=== PATIENT | female | born 1965 | race Caucasian/White ===

== ENCOUNTER 2017-10-03 18:26 | Emergency (ER) | payer BC ==
[~2017-10-03] VITALS: Ht 172.7 cm; Wt 86.4 kg
[2017-10-03] MEDS ORDERED: zolpidem 5mg tablet PO ONE (19:40)
[2017-10-03 20:14] LABS: BASOPHILS # (AUTO) 0.1 X10'3 (0-0.2); BASOPHILS % (AUTO) 0.7 % (0-1); EOSINOPHILS # (AUTO) 0.2 X10'3 (0-0.9); EOSINOPHILS % (AUTO) 1.6 % (0-6); HEMATOCRIT 45.6 % (35.0-45.0); HEMOGLOBIN 15.7 g/dl (12.0-16.0); LYMPHOCYTES # (AUTO) 3.6 X10'3 (1.1-4.8); LYMPHOCYTES % (AUTO) 35.9 % (21-51); MEAN CORPUSCULAR HEMOGLOBIN 30.7 PG (27.0-31.0); MEAN CORPUSCULAR HGB CONC 34.5 % (33.0-36.5); MEAN PLATELET VOLUME 7.8 FL (7.4-10.4); MONOCYTES # (AUTO) 0.6 X10'3 (0-0.9); MONOCYTES % (AUTO) 6.2 % (2-12); NEUTROPHILS # (AUTO) 5.5 X10'3 (1.8-7.7); NEUTROPHILS % (AUTO) 55.6 % (42-75); PLATELET COUNT 239 X10'3 (140-440); RED BLOOD COUNT 5.12 X10'6 (4.20-5.60); RED CELL DISTRIBUTION WIDTH 13.4 % (11.5-14.5); WHITE BLOOD COUNT 9.9 X10'3 (4.5-11.0)
[2017-10-03] MEDS ORDERED: nicotine 21mg patch - 24 hr TD ONE (20:20)
[2017-10-03 20:36] LABS: CLARITY,URINE Clear (Clear); COLOR,URINE Yellow (Yellow); GLUCOSE, URINE Negative (Neg); KETONES,URINE Negative (Neg); LEUKOCYTE ESTERASE ,URINE Trace (Neg); NITRITES, URINE Negative (Neg); OCCULT BLOOD,URINE Negative (Neg); PH,URINE 6.5 (4.8-8.0); PROTEIN,URINE Negative (Neg); UROBILINOGEN,URINE 0.2 E.U/dL (0.2-1.0)
[2017-10-03 20:37] LABS: ALANINE AMINOTRANSFERASE 21 U/L (12-78); ALBUMIN/GLOBULIN RATIO 1.1 (1.1-1.5); ALKALINE PHOSPHATASE 61 IU/L (46-116); ASPARTATE AMINO TRANSFERASE 16 U/L (10-37); BILIRUBIN,TOTAL 0.3 MG/DL (0.1-1.0); BLOOD UREA NITROGEN 17 MG/DL (7-18); BUN/CREATININE RATIO 19.5 (6.6-38.0); CALCIUM 9.6 MG/DL (8.5-10.1); CHLORIDE 105 MMOL/L (99-107); CREATININE 0.87 MG/DL (0.40-0.90); ETHANOL < 0.010 GM/DL (0.0-0.010); GLUCOSE 88 MG/DL (70-104); TOTAL CARBON DIOXIDE 28.4 MMOL/L (24-32); TOTAL PROTEIN 7.5 G/DL (6.4-8.2); eGFR 69 ML/MIN
[2017-10-03 20:37] LABS: URINE HCG NEGATIVE (NEG)
[2017-10-03 20:48] LABS: URINE AMPHETAMINE SCREEN NEGATIVE (Neg); URINE BARBITUATE SCREEN NEGATIVE (Neg); URINE BENZODIAZEPINES SCREEN NEGATIVE (Neg); URINE CANNABINOID SCREEN NEGATIVE (Neg); URINE COCAINE SCREEN NEGATIVE (Neg); URINE METHADONE SCREEN NEGATIVE (Neg); URINE OPIATE SCREEN NEGATIVE (Neg); URINE PHENCYCLIDINE SCREEN NEGATIVE (Neg)
[2017-10-03 20:51] LABS: UA COLLECTION TYPE VOIDED
[2017-10-03 21:01] LABS: SQUAMOUS EPITHELIAL CELL,UR MODERATE /LPF (FEW)
[2017-10-03 21:02] LABS: BACTERIA,URINE 2+ /HPF (Neg); RBC,URINE NONE SEEN /HPF (0-2); WBC,URINE 0-4 /HPF (0-4)
[2017-10-03 21:05] LABS: ANION GAP 9 (8-16); SODIUM 142 MMOL/L (135-145)
[2017-10-04 00:02] VITALS: BP 121/62
[2017-10-04] MEDS ORDERED: nicotine 21mg patch - 24 hr TD SCH (08:00)
[2017-10-04] MEDS ORDERED: NO HOME MEDS (10:59)
[2017-10-05] MEDS ORDERED: BLACK COHOSH PO (11:01)
== END 2017-10-04 00:05 | disposition home or self-care (01) ==
LOC: ER 18:27
DX: R45.851 Suicidal ideations (principal); F17.200 Nicotine dependence, unspecified, uncomplicated; Z60.2 Problems related to living alone; Z88.1 Allergy status to other antibiotic agents
CPT/HCPCS: 36415; 80053; 80305; 80320; 81001; 81025; 84443; 85025; 96372; 99283; 99284; 99285

== ENCOUNTER 2017-10-03 23:00 | Inpatient (IN) | payer BC ==
[~2017-10-03] VITALS: Ht 172.7 cm; Wt 86.4 kg
[2017-10-04 01:57] VITALS: BP 97/64
[2017-10-04] MEDS: acetaminophen 325mg tablet PO PRN ×3 (04:52→21:20)
[2017-10-04 08:00] VITALS: BP 102/69
[2017-10-04] MEDS: nicotine 21mg patch - 24 hr TD SCH (08:28)
[2017-10-04] MEDS ORDERED: NO HOME MEDS (10:59)
[2017-10-04 19:00] VITALS: BP 103/68
[2017-10-04] MEDS: hydrOXYzine 10 MG tablet PO PRN (21:20)
[2017-10-04] MEDS: traZODone 50mg tablet PO SCH (21:20)
[2017-10-05 07:45] VITALS: BP 109/58
[2017-10-05] MEDS: citalopram 20mg tablet PO SCH (08:06)
[2017-10-05] MEDS: nicotine 21mg patch - 24 hr TD SCH (08:07)
[2017-10-05] MEDS: acetaminophen 325mg tablet PO PRN ×2 (09:09→20:34)
[2017-10-05] MEDS ORDERED: BLACK COHOSH PO (11:01)
[2017-10-05 19:00] VITALS: BP 101/62
[2017-10-05] MEDS: traZODone 50mg tablet PO SCH (20:33)
[2017-10-05] MEDS: BLACK COHOSH PO SCH (20:34)
[2017-10-06 08:00] VITALS: BP 92/56
[2017-10-06] MEDS: citalopram 20mg tablet PO SCH (08:28)
[2017-10-06] MEDS: nicotine 21mg patch - 24 hr TD SCH (08:29)
[2017-10-06] MEDS ORDERED: citalopram 20mg tablet PO ONE (11:00)
[2017-10-06] MEDS: magnesium hydroxide 30ml (MOM) UD suspension PO PRN (14:48)
[2017-10-06 19:14] VITALS: BP 109/62
[2017-10-06] MEDS: traZODone 50mg tablet PO SCH (20:46)
[2017-10-06] MEDS: BLACK COHOSH PO SCH (20:46)
[2017-10-07 08:00] VITALS: BP 99/53
[2017-10-07] MEDS: citalopram 20mg tablet PO SCH ×2 (08:03→08:04)
[2017-10-07] MEDS: nicotine 21mg patch - 24 hr TD SCH (08:05)
[2017-10-07] MEDS: hydrOXYzine 10 MG tablet PO PRN ×2 (10:19→21:18)
[2017-10-07] MEDS: acetaminophen 325mg tablet PO PRN (10:20)
[2017-10-07 19:39] VITALS: BP 92/49
[2017-10-07] MEDS: BLACK COHOSH PO SCH (21:18)
[2017-10-07] MEDS: traZODone 50mg tablet PO SCH (21:18)
[2017-10-08 08:00] VITALS: BP 107/60
[2017-10-08] MEDS: nicotine 21mg patch - 24 hr TD SCH (08:13)
[2017-10-08] MEDS: citalopram 20mg tablet PO SCH (08:13)
[2017-10-08] MEDS: magnesium hydroxide 30ml (MOM) UD suspension PO PRN (09:03)
[2017-10-08] MEDS: traZODone 50mg tablet PO SCH (20:04)
[2017-10-08] MEDS: acetaminophen 325mg tablet PO PRN (20:04)
[2017-10-08] MEDS: hydrOXYzine 10 MG tablet PO PRN (20:04)
[2017-10-08] MEDS: BLACK COHOSH PO SCH (20:05)
[2017-10-09] MEDS ORDERED: NICO-687 TD (07:30)
[2017-10-09] MEDS ORDERED: CITA40TA11 PO (07:30)
[2017-10-09] MEDS ORDERED: TRAZ-143 PO (07:30)
[2017-10-09 07:43] VITALS: BP 102/55
[2017-10-09] MEDS: citalopram 20mg tablet PO SCH (08:15)
[2017-10-09] MEDS: nicotine 21mg patch - 24 hr TD SCH (08:15)
== END 2017-10-09 10:45 | disposition home or self-care (01) | DRG 885 ==
LOC: ADULT MH 23:00
PROVIDERS: ADMIT Psychiatry & Neurology Psychiatry; ATTEND Psychiatry & Neurology Psychiatry
DX: F33.2 Major depressive disorder, recurrent severe without psychotic features (principal); R45.851 Suicidal ideations; F17.210 Nicotine dependence, cigarettes, uncomplicated; F43.20 Adjustment disorder, unspecified; M50.322 Other cervical disc degeneration at C5-C6 level; G47.00 Insomnia, unspecified; Z80.0 Family history of malignant neoplasm of digestive organs; Z88.1 Allergy status to other antibiotic agents
CPT/HCPCS: 87070; 99406